=== PATIENT | male | born 2000 | race Two or more races ===

== ENCOUNTER → 2025-05-19 | Outpatient (CLI) | payer MEDICAID, SELFPAY ==
--- NOTE | 2025-05-19 13:15 | XR_ITS ---
EXAMINATION: PET/CT FUSION SKULL TO THIGH EXAM DATE AND TIME: May 19, 2025, 1414 hours, comparison PET/CT scan July 12, 2023 INDICATIONS: Diagnosis non-Hodgkin's lymphoma restaging CTDI:vol (mGy) 8.57 DLP: (mGycm) 889.38 PROCEDURE: 15.7 mCi FDG was administered intravenously To allow for distribution and uptake of radiotracer, the patient was allowed to rest quietly in a shielded room. Imaging was performed on an integrated 16-slice PET/CT scanner, with scanning from the skull base to the mid thigh. Serum blood glucose at the time of the injection was measured 102 mg/dL. CT scanning was performed without oral or intravenous contrast material. FINDINGS: Head and Neck: There is no janette hypermetabolism in the neck. The visualized portions of the brain are normal in appearance on CT. Chest: There is no janette hypermetabolism in the chest. There are no pulmonary nodules. Hypermetabolic retroclavicular lymphadenopathy no longer identified Abdomen and Pelvis: There is no janette hypermetabolism in retroperitoneal or pelvic chains. The spleen is normal in size and FDG avidity. Musculoskeletal: Marrow uptake is within normal range. IMPRESSION: Compared with PET/CT scan July 12, 2023, retroclavicular hypermetabolic lymphadenopathy no longer identified No interval neck chest abdomen or pelvic lymphadenopathy
== END | disposition home or self-care (01) ==
PROVIDERS: PCP Family Medicine; Referring Provider Internal Medicine Hematology & Oncology; Visit Provider Internal Medicine Hematology & Oncology
DX: C81.18 Nodular sclerosis Hodgkin lymphoma, lymph nodes of multiple sites (principal); Z29.89 Encounter for other specified prophylactic measures
CPT/HCPCS: 78815; A9552